=== PATIENT | female | born 1940 | race Caucasian/White ===

== ENCOUNTER 2021-11-29 08:55 | Outpatient (CLI) | payer MEDICARE, BC ==
[~2021-11-29] VITALS: Ht 152.5 cm; Wt 61.6 kg
[2021-11-29] MEDS ORDERED: TOPROL XL100 MG PO (09:36)
[2021-11-29] MEDS ORDERED: COZAAR 25MG25 MG/TAB PO (09:37)
[2021-11-29] MEDS ORDERED: NORVASC 10MG10 MG PO (09:37)
[2021-11-29] MEDS ORDERED: LIPITOR 10MG10 MG PO (09:38)
[2021-11-29] MEDS ORDERED: CATAPRES 0.1MG0.1 MG PO (09:38)
[2021-11-29 10:04] VITALS: BP 145/74; PULSE 82; TEMP 98.1
[2021-11-29 10:49] VITALS: BP 136/65; PULSE 86
[2021-11-29] MEDS ORDERED: CEPHALEXIN500 M1 PO (10:53)
--- NOTE | 2021-11-29 11:20 | NUR ---
Discharge instructions given to pt.pt verbalizes understanding.Pt escorted out via wheelchair.
== END 2021-11-29 11:21 ==
LOC: COL.VAS 08:55
DX: R00.2 Palpitations (principal)
CPT/HCPCS: 27886; C1764